=== PATIENT | female | born 1955 | race Caucasian/White ===

== ENCOUNTER 2017-01-13 17:55 | Emergency (ER) | payer SELFPAY ==
[~2017-01-13] VITALS: Ht 162.6 cm; Wt 68.9 kg
[2017-01-13] MEDS ORDERED: fentaNYL PF VIAL 100 MCG/2 ML VIAL IV ONE (18:30)
[2017-01-13] MEDS ORDERED: ONDANSETRON PF 4 MG/2 ML VIAL. IV ONE (18:30)
--- NOTE | 2017-01-13 19:08 | RAD ---
Indication fall. Injury to the head and cervical spine. The head and cervical spine were evaluated. No prior imaging of the head is available. Images of the cervical spine were reformatted in the coronal and sagittal planes. CTA HEAD: Findings. The calvarium appears unremarkable. There is mucosal thickening involving both maxillary sinuses and significant opacification of ethmoid air cells. There is partial opacification of the right frontal sinus. There is some mucosal thickening associated with the sphenoid sinus. Constellation of findings is suggestive of sinusitis. Clinical correlation advised. Antral windows are noted. There is no subdural or epidural hematoma. There is no mass or midline shift. No hemorrhage is seen. Acute intracranial finding is not apparent. CT cervical spine: Findings. The lung apices are clear. A significant soft tissue finding in the neck is not seen. Mild adenopathy in the neck is likely incidental. Review of axial images is negative with regards to fracture. There are some mild degenerative changes seen on the reformatted images. This is most apparent at C6-7 where there is some disc space narrowing. Acute finding is not seen. IMPRESSION: No acute findings seen in the head. Slight degenerative changes in the cervical spine. No acute finding seen Findings compatible with sinusitis Electronically signed by: Prasanna Lindsay MD (01/13/2017 7:05 PM)
--- NOTE | 2017-01-13 19:31 | PHYS DOC ---
Past Medical History Past Medical History: Cancer Additional Past Medical Histor: breast and colon ca Past Surgical History: Hysterectomy Additional Past Surgical Histo: r knee, sinus, sx Alcohol Use: Occasionally Drug Use: None Adult General Chief Complaint Chief Complaint: HEAD INJURY/TRAUMA HPI HPI Patient is a 61 year old female brought to the ED by her daughter after an head injury at the [facility]. The patient was walking on a wet/slippery floor when her feet went out from under her and she fell onto her backside, positive loss of consciousness briefly. She struck the back of her head hard on the cement. She slowly was able to sit and stand up and ambulate. She complains of severe head pain, and some neck pain where her neck and head come together. She is a little nauseated but has not vomited. She is not on any blood thinners. She denies injury elsewhere. Review of Systems Review of Systems Constitutional: Denies fever or chills [] Respiratory: Denies cough or shortness of breath [] GI: Nausea but no vomiting Musculoskeletal: Denies back pain or joint pain [] Integument: Denies rash or skin lesions [] Neurologic: As in history of present illness Current Medications Current Medications Current Medications Medications (Trade) Dose Ordered Sig/Gagan Start Time Stop Time Status Last Admin Dose Admin Fentanyl Citrate (Fentanyl 2ml Vial) 75 mcg 1X ONCE 01/13/17 18:30 01/13/17 18:31 DC 01/13/17 18:24 75 MCG Ondansetron HCl (Zofran) 4 mg 1X ONCE 01/13/17 18:30 01/13/17 18:31 DC 01/13/17 18:24 4 MG Allergies Allergies Allergies Coded Allergies Type Severity Reaction Last Updated Verified Penicillins Allergy Intermediate 01/13/17 Yes Physical Exam Physical Exam Constitutional: Well developed, well nourished, no acute distress, non-toxic appearance. Alert, mentating normally. C-collar has been placed by nursing staff. HENT: Normocephalic, no laceration or hematoma, tenderness to palpation over the right posterior scalp, bilateral external ears normal, nose normal. [] Eyes: PERRLA, EOMI, conjunctiva normal, no discharge. [] Neck: C-collar was initially left in place. Palpation of the cervical spine without moving the patient by me, mildly tender to palpation over the upper cervical spine with no palpable swelling, deformity, or crepitance. Skin: Warm, dry, no erythema, no rash. [] Back: No tenderness, no CVA tenderness. No bruising, no deformity. Extremities: No tenderness, no cyanosis, no clubbing, ROM intact, no edema. [] Neurologic: Alert and oriented X 3, normal motor function, normal sensory function, no focal deficits noted. [] Current Patient Data Vital Signs Vital Signs Date Time Temp Pulse Resp B/P (MAP) Pulse Ox O2 Delivery O2 Flow Rate FiO2 01/13/17 18:01 98.0 75 20 163/80 (107) 98 Room Air 98.0 EKG EKG [] Radiology/Procedures Radiology/Procedures CT scan of the head and cervical spine read by the radiologist. No acute findings. [] Course & Med Decision Making Course & Med Decision Making Pertinent Labs and Imaging studies reviewed. (See chart for details) 61-year-old female who slipped and fell, striking the back of her head on a concrete service with positive loss of consciousness. She presents alert and mentating normally. CT scan negative for acute findings. She was given some IV pain and nausea medications. She was stable in the emergency department and feeling better after this treatment. Cervical collar was removed by me after C- spine was cleared. Discussed head injury precautions, concussion instructions with the patient and her daughter. See instructions for plan. [] Dragon Disclaimer Dragon Disclaimer This electronic medical record was generated, in whole or in part, using a voice recognition dictation system. Departure Departure Impression: Primary Impression: Head injury with loss of consciousness Disposition: HOME, SELF-CARE Condition: STABLE Referrals: JEN SANCHEZ MD (PCP) Patient Instructions: Concussion and Brain Injury, [id number], Head Injury, Adult, [id number] Additional Instructions: Rest in a dark quiet room to give your brain a chance to rest from the concussion. If needed, ibuprofen or Tylenol for pain. Watch your diet for 12-24 hours, small amounts of foods that are not spicy or greasy. It may take several days to fully recover. As long as you are still having symptoms such as headache or nausea, you do need to rest your brain by staying in a dark quiet room, limit any kind of stimulating things such as TV, computers , etc., as much as you can. If you have continued problems after 3-5 days, see your doctor or you may consider the concussion clinic at [facility]. EARNESTINE CONRAD MD Jan 13, 2017 19:31
[2017-01-13 19:40] VITALS: BP 145/68
== END 2017-01-13 19:50 | disposition home or self-care (01) ==
LOC: ER 17:55
DX: S06.9X9A Unspecified intracranial injury with loss of consciousness of unspecified duration, initial encounter (principal); M54.2 Cervicalgia; Z90.710 Acquired absence of both cervix and uterus; Z98.890 Other specified postprocedural states; Z88.0 Allergy status to penicillin; W01.0XXA Fall on same level from slipping, tripping and stumbling without subsequent striking against object, initial encounter; Y93.89 Activity, other specified; Y99.8 Other external cause status; Y92.89 Other specified places as the place of occurrence of the external cause
CPT/HCPCS: 70450; 72125; 96374; 96375; 99284; J2405; J3010